=== PATIENT | female | born 1990 | race Caucasian/White ===

== ENCOUNTER 2022-05-18 01:51 | Day surgery (SDC) | payer OTHER, SELFPAY ==
[2022-05-12 16:36] VITALS: BMI 19.0
--- NOTE | 2022-05-12 16:52 | PC.NURSE ---
Report to the Outpatient Waiting Room, entrance under the green pavilion located off [facility], at 1000 on 05-18-22. OR Time: 1200. - You and your visitor will be asked a series of questions to screen for COVID 19 for your protection. - Only one visitor is allowed at this time. - The patient visitor is requested to leave or wait in car when not with patient. - A mask is required within the hospital. Patients may have clear liquids (water, carbonated beverages, clear teas, apple juice) until 3 hours prior to surgery with a maximum of 20 ounces. 0900 - No food from midnight until time of surgery - Infants may have breast milk until 4 hours before surgery, infant formula 6 hours prior to surgery. - Children will be allowed to drink immediately following surgery. If applicable, please bring a bottle or sippy cup to assist with drinking. Juice, water, soda, and popsicles are readily available. For infants on formula, please bring formula the day of surgery. Pacifiers are allowed. Take the following medications with a SIP of water the morning of surgery: None Medications to discontinue per physician: N/A Please no make-up, nail ukrainian, hairspray, perfume, deodorant, or body powder the day of surgery. No jewelry (including any body piercings) or valuables the day of surgery, leave them at home. Please take a shower or bath the night before, or the morning of, surgery with an antibacterial soap. Wear comfortable, loose fitting clothing. Children are encouraged to wear pajamas. - Jewelry must be removed prior to entering the operating room. Rings and piercings that are not removed may be cut off. - The hospital will not accept responsibility for valuables. - Please leave all valuables, including medications, at home the day of surgery. If you are going home after surgery, a licensed hi low truck driver must drive you home. - NO public transportation without another adult. - We recommend that an adult stay with you for 24 hours following discharge. - We also recommend that you do not drive, make important decision, drink alcoholic beverages, or take any drugs that were not prescribed by your health care provider for at least 24 hours after your discharge time. For Pediatric surgeries, we recommend two adults accompany the child home (only one inside the building at this time). Follow any additional instructions given to you from your surgeon. If you or anyone in your household have experienced Covid symptoms in the past week, please notify your surgeon or the nurse liaison at the phone number below for possible testing. Telephone instructions given to Suzi Israel and asked if any additional questions and then verbalized understanding. Patient advised to call surgeon office or pre surgery nurse liaison [phone] if any additional questions.
--- NOTE | 2022-05-17 12:25 | P.PNAN_ITS ---
Anes - Initial Pre Proc Eval Procedure: Operation Date: 05/18/22 12:00 Proposed Procedures p Loop Electrical Excision Procedure - Brenton Godoy MD s Hysteroscopy Dilation and Curettage with Nicolle Endometrial Ablation - Brenton Godoy MD Date/Time: 05/17/22 12:25 Surgeon: Brenton Godoy MD Pre Op Diagnosis: abnormal pap, irregular bleeding Patient Data Age: 32 Gender: F Height: 1.73 m Weight: 56.7 kg Allergies Allergy/AdvReac Type Severity Reaction Status Date / Time No Known Allergies Allergy Verified 05/18/22 10:12 Home Medications Medication Instructions Recorded Confirmed Type No Home Medications 05/12/22 05/18/22 History Patient hx anesthesia problems: none Family hx anesthesia problems: none Results Review: All pre-operative results and documents have been reviewed as part of the pre- operative evaluation. [facility] [place] Past Medical History Medical History (Updated 05/17/22 @ 12:25 by Fan Garcia MD) Abnormal uterine bleeding DVT (deep venous thrombosis) Social History Social History Smoking status: Never smoker Second hand tobacco smoke exposure: No Alcohol intake: current Alcohol use details: socially Substance use: never Substance use type: does not use Living arrangements: with family Spiritual care concerns: No Anes - Eval Final PreProcedure Day of Procedure 05/17/22 12:25 Patient weight: normal Heart: regular rate and rhythm Lungs: clear to auscultation and normal air movement Airway: Mallampati scale class II Neurological: alert and oriented Last oral intake: >/= 8 hours ASA classification: I Emergent: no Anesthetic plan: proceed Anesthesia type and monitoring: general GIVS Results Review: All pre-operative results and documents have been reviewed as part of the pre- operative evaluation. Informed Consent: The patient's anesthetic plan and its attendant risks and benefits were discussed with the patient/family/POA. Questions were solicited and answers provided to the satisfaction of the patient/family/POA.
[2022-05-18 10:15] VITALS: BP 112/74; PULSE 74; RESP 20; TEMP 37.1; O2SAT 100
[2022-05-18] MEDS: ACETAMINOPHEN 500 MG TABLET 1000 MG PO (10:33)
[2022-05-18] MEDS: LACTATED RINGERS 1,000 ML 30 ML IV CONT (10:40)
--- NOTE | 2022-05-18 11:42 | PM.IMHP ---
H&P: HPI History of Present Illness Date/Time: 05/18/22 11:42 32 y/o with ASC-H on pap. Colposcopic biopsy showed DENNYS 2/3 at 12:00, with a negative ECC. Her has had a vasectomy. She has heavy menses lasting 7 days each and would like an endometrial ablation as well as the LEEP I have advised. Chief Complaint: Abnormal pap Review of Systems Review of Systems: All systems reviewed & are unremarkable except as noted in HPI and below PMFSH Past Medical History Medical History Abnormal uterine bleeding Surgical History Surgical History History of elective breast augmentation Social History Social History Smoking status: Never smoker Second hand tobacco smoke exposure: No Alcohol intake: current Alcohol use details: socially Substance use: never Substance use type: does not use Living arrangements: with family Spiritual care concerns: No Meds Home Medications and Allergies Home Medications Medication Instructions Recorded Confirmed Type No Home Medications 05/12/22 05/18/22 History Allergies Allergy/AdvReac Type Severity Reaction Status Date / Time No Known Allergies Allergy Verified 05/18/22 10:12 Vital Signs Vital Signs - 24 hr 05/18/22 10:15 Temperature 37.1 C Pulse Rate 74 Respiratory Rate 20 Blood Pressure 112/74 Pulse Oximetry 100 Oxygen Delivery Room Air Exam Const: Orientation/consciousness: patient oriented x3 Other: Well-developed, well-nourished female in no acute distress. Neck: Thyroid: thyroid normal Lymphatic: no lymphadenopathy noted (in neck, axilla or inguinal nodes) Resp: Effort & Inspection: normal respiratory effort Auscultation: clear to auscultation bilaterally Cardio: Rate: regular rate Rhythm: regular rhythm Heart sounds: S1 normal heart sound present and S2 normal heart sound present GI: Other: ABD: Soft, nontender, nondistended. No guarding or rebound tenderness. No hepatosplenomegaly. : General: Yes no CVA tenderness Other: External genitalia: normal female hair distribution, without lesion. Urethral meatus: no lesion, non prolapsed. Bladder: no mass, nontender Vagina: well-estrogenized, without lesion or discharge. No cystocele or rectocele. Cervix: no lesion or discharge. Uterus: small, anteverted, freely mobile, nontender Adnexa: no mass or tenderness. Anus/perineum: no lesions, nontender Back/Spine/Pelvis: Back: no CVA tenderness Skin: General skin exam: normal color and no rashes or lesions noted Neuro: General: patient oriented x3 Extrem: Other: Extremities: nontender with no edema Psych: Mental Status: mental status grossly normal Affect: normal affect Assessment and Plan Assessment and plan (1) Severe dysplasia of cervix (DENNYS III): Code(s): D06.9 - Carcinoma in situ of cervix, unspecified Status: Acute Assessment and Plan: A: DENNYS 2/3. P: Offered LEEP. She also desires endometrial ablation. She understands risks of surgery to include risks of anesthesia, risks of pain, infection, bleeding, blood products, thromboembolic phenomena and damage to adjacent structures such as bowel, bladder, ureters, blood vessels and nerves. She understands all these risks and elects to proceed with surgery. (2) Menometrorrhagia: Code(s): N92.1 - Excessive and frequent menstruation with irregular cycle Status: Acute
--- NOTE | 2022-05-18 12:02 | WPDHPUPDATE1 ---
History and Physical Update Update Date/Time: 05/18/22 12:02 History and Physical has been reviewed, including an updated exam of the patient. There are NO changes in the patient's condition. Risks, benefits, and alternatives have been discussed and questions answered. Patient agrees to proceed with procedure.
[2022-05-18] MEDS: KETOROLAC 15 MG/ML VIAL (*BKC) IV PUSH (12:04)
[2022-05-18] MEDS: FERRIC SUBSULFATE 8 ML SOLUTION WITH APPLICATOR TOPICAL (12:41)
[2022-05-18 12:49] VITALS: BP 109/55; PULSE 79; RESP 14; O2SAT 100
--- NOTE | 2022-05-18 12:51 | W.PM.PROC2 ---
Procedure Note - Detailed Date of Procedure 05/18/22 Pre-op Diagnosis Menometrorrhagia Severe cervical dysplasia Post-op Diagnosis Same Procedure Performed Hysteroscopy Dilation and sharp curettage Endometrial ablation LEEP conization of cervix Biopsy of epithelium of posterior vaginal fornix Surgeon Brenton Godoy MD Anesthesia MAC Findings Unremarkable endometrial cavity. Both tubal ostia seen. Uterus sounded to 8 cm depth, with cervix length 3 cm. Acetowhite epithelium on anterior lip of cervix. Nodule or possible bulla on epithelium of posterior vaginal fornix. Description of Procedure The patient was taken to the operating room where she was prepared and draped in the usual sterile fashion in the dorsal lithotomy position. The bladder was drained with a red rubber catheter. A sterile speculum was placed into the vagina. The anterior lip of the cervix was grasped with single-tooth tenaculum. Ten mL of 1% lidocaine was administered in a paracervical block. The cervix was then gently dilated using Hegar dilators until an 8 mm dilator could be passed. Hysteroscopy was performed using sterile saline as a distention medium. Findings are as noted above. Sharp curettage was then performed, and endometrial curettings were collected on a Telfa pad and passed off to be sent to pathology. Finally, the the Nicolle device was advanced and endometrial ablation commenced without difficulty. The device was withdrawn and a second look was taken using the hysteroscope. Excellent coverage of the endometrial cavity was noted. The tenaculum was removed. Hemostasis was excellent. Acetic acid was then applied. LEEP conization was undertaken, first biopsying the posterior lip of the cervix, then the anterior, then the top of the hat. A punch biopsy of the apparent nodule in the posterior fornix suggested the lesion was more of a bulla than a solid nodule. Specimens were passed off to be sent to pathology. Hemostasis was achieved with a roller ball. Monsel's solution was applied. Sponge, lap, needle and instrument counts were correct. The patient was awakened and taken to the recovery room in stable condition. I was present and scrubbed through the entire procedure. Implants None Estimated Blood Loss 10 Drains No Packing No Pathology Yes (Endometrial curettings, posterior lip of cervix, anterior lip of cervix, top of the hat of cervix, and punch biopsy of the epithelium of posterior vaginal fornix) Complications None Condition Stable Disposition PACU
[2022-05-18 13:15] VITALS: BP 118/74; PULSE 69; RESP 14; O2SAT 100
[2022-05-18 13:30] VITALS: BP 124/86; PULSE 63; RESP 16
== END 2022-05-18 13:40 | disposition home or self-care (01) ==
PROVIDERS: Visit Provider Obstetrics & Gynecology
PROC: 0UBC7ZZ Excision of Cervix, Via Natural or Artificial Opening (ICD-10-PCS; CPT 57522; principal; 2022-05-18 12:00)
PROC: 0U5B8ZZ Destruction of Endometrium, Via Natural or Artificial Opening Endoscopic (ICD-10-PCS; CPT 58563; 2022-05-18 12:00)
DX: N92.1 Excessive and frequent menstruation with irregular cycle (principal); D06.9 Carcinoma in situ of cervix, unspecified
CPT/HCPCS: 58563; 57522; 88305; 88307; A9270; J1885; J2250; J2704; J3010; J7030; J7120